=== PATIENT | female | born 1970 | race Caucasian/White ===

== ENCOUNTER 2017-01-16 13:23 | Emergency (ER) | payer OTHER ==
[~2017-01-16] VITALS: Ht 165.1 cm; Wt 68.0 kg
[~2017-01-16 13:23] MED LIST: CLEOCIN HCL150 MG PO; CLEOCIN HCL300 MG PO; NORCO 5-325 TA1 EACH PO
[2017-01-16] MEDS ORDERED: DEXMETHYLPHENID10 MG PO (13:30)
[2017-01-16] MEDS ORDERED: HYDROXYZINE PAM50 MG PO (13:30)
[2017-01-16] MEDS ORDERED: TRAZODONE HCL100 MG PO (13:30)
[2017-01-16] MEDS ORDERED: PAROXETINE HCL30 MG PO (13:31)
[2017-01-16 13:40] LABS: URINE BILIRUBIN NEGATIVE (Negative); URINE BLOOD NEGATIVE (Negative); URINE COLOR YELLOW; URINE GLUCOSE-RANDOM* NEGATIVE (Negative); URINE KETONES NEGATIVE (Negative); URINE LEUKOCYTES-REFLEX NEGATIVE (Negative); URINE PROTEIN (DIPSTICK) NEGATIVE (Negative); URINE UROBILINOGEN 0.2 E.U./dl (0.2-1.0)
[2017-01-16] MEDS ORDERED: AMITRIPTYLINE H25 M2 PO (13:40)
[2017-01-16] MEDS ORDERED: NORCO 5-325 TA1 EACH PO (13:58)
[2017-01-16 14:10] VITALS: BP 147/76
== END 2017-01-16 14:12 | disposition home or self-care (01) ==
LOC: ER 13:23
PROVIDERS: Emergency Medicine
DX: N30.10 Interstitial cystitis (chronic) without hematuria (principal); Z88.0 Allergy status to penicillin

== ENCOUNTER 2017-01-25 10:07 | Emergency (ER) | payer OTHER ==
[~2017-01-25] VITALS: Ht 165.1 cm; Wt 68.0 kg
[~2017-01-25 10:07] MED LIST changes: +AMITRIPTYLINE H25 M2 PO; +DEXMETHYLPHENID10 MG PO; +HYDROXYZINE PAM50 MG PO; +PAROXETINE HCL30 MG PO; +TRAZODONE HCL100 MG PO
[2017-01-25 10:09] VITALS: BP 136/86
[2017-01-25] MEDS ORDERED: HYDROCODONE-AP1 EAC6 PO (10:44)
[2017-01-25] MEDS ORDERED: IBUPROFEN 600600 M1 PO (10:44)
[2017-01-25] MEDS ORDERED: ZPAK PO (10:44)
== END 2017-01-25 10:55 | disposition home or self-care (01) ==
LOC: ER 10:07
DX: L03.114 Cellulitis of left upper limb (principal); Z88.0 Allergy status to penicillin